=== PATIENT | female | born 1940 | race Hispanic/Latino ===

== ENCOUNTER 2018-04-07 15:25 | Emergency (ER) | payer MEDICARE ==
[~2018-04-07 15:25] MED LIST: ACET-66 PO; CARV12.511 PO; CRANBERRY PO; LISI40TA4 PO; LORA10TA7 PO; METF-527 PO; OMEP20TA25 PO; PRAV20TA4 PO; SODI30SP3 NS; SOTA120T PO; WARF-57 PO; XOPENEX IH
[2018-04-07 16:15] LABS: BASOPHILS % (AUTO) 0.4 % (0.0-5.0); EOSINOPHILS % (AUTO) 1.1 % (0.0-8.0); HEMATOCRIT 39.5 % (36-48); LYMPHOCYTES % (AUTO) 33.5 % (21.0-51.0); MEAN CORPUSCULAR VOLUME 91.1 fL (79-99); MONOCYTES % (AUTO) 11.7 % (3.0-13.0); NEUTROPHILS % (AUTO) 53.3 % (40.0-77.0); PLATELET COUNT (AUTO) 200 K/uL (130-400); RED BLOOD CELL COUNT(AUTO) 4.34 MIL/uL (4.00-5.50); RED CELL DISTRIBUTION WIDTH 13.7 % (11.0-15.5); WHITE BLOOD COUNT (AUTO) 6.5 K/uL (4.8-10.8)
[2018-04-07 16:27] LABS: CREATININE 0.9 mg/dL (0.5-1.5)
[2018-04-07 16:32] LABS: ALBUMIN 3.1 g/dL (3.5-5.0); BILIRUBIN,TOTAL 0.9 mg/dL (0.2-1.0); TOTAL PROTEIN, SERUM 6.5 g/dL (6.0-8.3)
[2018-04-07] MEDS ORDERED: SODIUM CHLORIDE 0.9% 1000ML 1,000 ML IV ONE (17:08)
[2018-04-07 18:33] LABS: APPEARANCE,URINE Clear (CLEAR); BILIRUBIN,URINE Negative (NEGATIVE); COLOR,URINE Yellow (YELLOW); GLUCOSE, URINE (UA) Negative (NEGATIVE); KETONES,URINE Negative (NEGATIVE); LEUKOCYTE ESTERASE ,URINE Negative (NEGATIVE); NITRATE,URINE Negative (NEGATIVE); OCCULT BLOOD,URINE Negative (NEGATIVE); PROTEIN,URINE Negative (NEGATIVE); UROBILINOGEN,URINE 0.2 mg/dL (0.2-1.0)
== END 2018-04-07 19:19 | disposition home or self-care (01) ==
LOC: EDH 15:25
DX: R19.7 Diarrhea, unspecified (principal); I48.91 Unspecified atrial fibrillation; I25.10 Atherosclerotic heart disease of native coronary artery without angina pectoris; J44.9 Chronic obstructive pulmonary disease, unspecified; E11.9 Type 2 diabetes mellitus without complications; E78.5 Hyperlipidemia, unspecified; I10 Essential (primary) hypertension; Z88.6 Allergy status to analgesic agent; Z88.8 Allergy status to other drugs, medicaments and biological substances
CPT/HCPCS: 36415; 71045; 80053; 81003; 85025; 93005; 96360; 96361; 99285; J7030

== ENCOUNTER 2018-05-25 02:53 | Observation (INO) | payer MEDICARE ==
[2018-05-25] MEDS ORDERED: MECLIZINE HCL 25 MG TABLET ONE (03:12)
[2018-05-25] MEDS ORDERED: ONDANSETRON HCL 4 MG/2 ML VIAL ONE (03:12)
[2018-05-25 03:42] LABS: CREATININE 0.9 mg/dL (0.5-1.5)
[2018-05-25 03:43] LABS: BASOPHILS % (AUTO) 0.6 % (0.0-5.0); EOSINOPHILS % (AUTO) 1.3 % (0.0-8.0); LYMPHOCYTES % (AUTO) 31.5 % (21.0-51.0); MEAN CORPUSCULAR HEMOGLOBIN 29.7 pg (27.0-33.0); MEAN CORPUSCULAR HGB CONC 33.2 g/dL (32.0-36.0); MEAN CORPUSCULAR VOLUME 89.6 fL (79-99); MONOCYTES % (AUTO) 9.8 % (3.0-13.0); NEUTROPHILS % (AUTO) 56.8 % (40.0-77.0); PLATELET COUNT (AUTO) 161 K/uL (130-400); RED BLOOD CELL COUNT(AUTO) 4.35 MIL/uL (4.00-5.50)
[2018-05-25 03:44] LABS: INR 1.4 (0.85-1.15); PARTIAL THROMBOPLASTIN TIME 32.3 SEC (26.3-35.5); PROTHROMBIN TIME 14.6 SEC (9.6-11.6)
[2018-05-25 03:46] LABS: BILIRUBIN,TOTAL 1.5 mg/dL (0.2-1.0); TOTAL PROTEIN, SERUM 6.3 g/dL (6.0-8.3)
[2018-05-25 04:36] LABS: APPEARANCE,URINE Clear (CLEAR); BILIRUBIN,URINE Negative (NEGATIVE); COLOR,URINE Yellow (YELLOW); GLUCOSE, URINE (UA) Negative (NEGATIVE); KETONES,URINE Negative (NEGATIVE); LEUKOCYTE ESTERASE ,URINE Small (NEGATIVE); NITRATE,URINE Negative (NEGATIVE); OCCULT BLOOD,URINE Negative (NEGATIVE); PROTEIN,URINE Negative (NEGATIVE); UROBILINOGEN,URINE 0.2 mg/dL (0.2-1.0)
[2018-05-25 04:58] LABS: BACTERIA,URINE Rare /HPF (None Seen); RBC,URINE None Seen /HPF (0-1)
[2018-05-25] MEDS ORDERED: MECLIZINE HCL 12.5 MG TABLET PO PRN (05:45)
[2018-05-25] MEDS ORDERED: SODIUM CHLORIDE 0.9% 1000ML 1,000 ML IV SCH (05:45)
[2018-05-25 08:00] VITALS: BP 151/67
[2018-05-25] MEDS ORDERED: ACETAMINOPHEN 325 MG TAB PO PRN (08:15)
[2018-05-25] MEDS ORDERED: WARF-57 PO (08:41)
[2018-05-25] MEDS ORDERED: OMEP20CA10 PO (08:41)
[2018-05-25] MEDS ORDERED: METF-444 PO (08:41)
[2018-05-25] MEDS ORDERED: LISI40TA4 PO (08:41)
[2018-05-25] MEDS ORDERED: CARV6.25 PO (08:41)
[2018-05-25] MEDS ORDERED: ENOXAPARIN SODIUM 80 MG/0.8 ML SQ SCH (09:00)
[2018-05-25 12:00] VITALS: BP 151/72
[2018-05-25 16:00] VITALS: BP 152/76
== END 2018-05-25 18:55 | disposition home or self-care (01) ==
LOC: EDH 02:53 → EDHIP 05:01 → 3BH 06:45
PROVIDERS: ADMIT Internal Medicine; ATTEND Internal Medicine
DX: H81.399 Other peripheral vertigo, unspecified ear (principal); I48.91 Unspecified atrial fibrillation; I48.92 Unspecified atrial flutter; R51 Headache; R19.7 Diarrhea, unspecified; E11.9 Type 2 diabetes mellitus without complications; I10 Essential (primary) hypertension; E66.9 Obesity, unspecified; Z79.01 Long term (current) use of anticoagulants
CPT/HCPCS: 36415; 70450; 70551; 80053; 81001; 82150; 82550; 82948 ×2; 83690; 84484; 85025; 85610; 85730; 87088; 93005; 96360; 96361; 96372; 99284; G0378 ×14; J1650; J2405; J7030

== ENCOUNTER 2018-07-06 17:38 | Observation (INO) | payer MEDICARE ==
[~2018-07-06] VITALS: Ht 152.4 cm; Wt 72.6 kg
[~2018-07-06 17:38] MED LIST changes: -CARV12.511 PO; +CARV6.25 PO; +METF-444 PO; -METF-527 PO; +OMEP20CA10 PO; -OMEP20TA25 PO; -PRAV20TA4 PO
[2018-07-06] MEDS ORDERED: GLUCAGON 1MG KIT 1 MG ML IM PRN (19:15)
[2018-07-06] MEDS ORDERED: DEXTROSE 50%-WATER 50 ML DISP.SYRIN IV PRN (19:15)
[2018-07-06 20:06] LABS: BASOPHILS % (AUTO) 0.6 % (0.0-5.0); EOSINOPHILS % (AUTO) 1.1 % (0.0-8.0); LYMPHOCYTES % (AUTO) 33.3 % (21.0-51.0); MEAN CORPUSCULAR HEMOGLOBIN 29.9 pg (27.0-33.0); MEAN CORPUSCULAR HGB CONC 33.9 g/dL (32.0-36.0); MEAN CORPUSCULAR VOLUME 88.2 fL (79-99); MONOCYTES % (AUTO) 8.8 % (3.0-13.0); NEUTROPHILS % (AUTO) 56.2 % (40.0-77.0); PLATELET COUNT (AUTO) 167 K/uL (130-400); RED BLOOD CELL COUNT(AUTO) 4.43 MIL/uL (4.00-5.50); RED CELL DISTRIBUTION WIDTH 14.4 % (11.0-15.5); WHITE BLOOD COUNT (AUTO) 5.7 K/uL (4.8-10.8)
[2018-07-06 20:18] LABS: CREATININE 0.9 mg/dL (0.5-1.5); POTASSIUM 4.4 mmol/L (3.5-5.1)
[2018-07-06 20:23] LABS: BILIRUBIN,DIRECT 0.1 mg/dL (0.0-0.3); BILIRUBIN,TOTAL 0.8 mg/dL (0.2-1.0); TOTAL PROTEIN, SERUM 6.4 g/dL (6.0-8.3)
[2018-07-06 20:28] LABS: CREATINE KINASE, TOTAL 70 U/L (21-232); MYOGLOBIN 25 ng/mL (10-92); TROPONIN I < 0.04 ng/mL (0.00-0.06)
[2018-07-06] MEDS: INSULIN R PO SS1 SQ SCH (21:00)
[2018-07-06 23:51] VITALS: BP 141/90
[2018-07-07] MEDS ORDERED: METF-446 PO (00:27)
[2018-07-07] MEDS ORDERED: LISI40TA4 PO (00:27)
[2018-07-07 02:20] LABS: HEMATOCRIT 38.3 % (36-48); MEAN CORPUSCULAR HEMOGLOBIN 28.9 pg (27.0-33.0); MEAN CORPUSCULAR HGB CONC 32.8 g/dL (32.0-36.0); MEAN CORPUSCULAR VOLUME 88.1 fL (79-99); PLATELET COUNT (AUTO) 158 K/uL (130-400); RED BLOOD CELL COUNT(AUTO) 4.35 MIL/uL (4.00-5.50); RED CELL DISTRIBUTION WIDTH 14.6 % (11.0-15.5); WHITE BLOOD COUNT (AUTO) 5.4 K/uL (4.8-10.8)
[2018-07-07 02:36] LABS: ALANINE AMINOTRANSFERASE 28 U/L (12-78); ASPARTATE AMINOTRANSFERASE 17 U/L (10-37); BILIRUBIN,DIRECT 0.2 mg/dL (0.0-0.3); CARBON DIOXIDE 32 mmol/L (21-32); CHLORIDE 104 mmol/L (101-111); CREATINE KINASE, TOTAL 53 U/L (21-232); CREATININE 0.9 mg/dL (0.5-1.5); GLOMERULAR FILTR. RATE CALC 64 mL/min (>60); GLUCOSE,RANDOM 114 mg/dL (70-105); MYOGLOBIN 37 ng/mL (10-92); POTASSIUM 3.9 mmol/L (3.5-5.1); SODIUM SERUM 141 mmol/L (136-145); TROPONIN I < 0.04 ng/mL (0.00-0.06); UREA NITROGEN, BLOOD 15 mg/dL (7-18)
[2018-07-07 03:00] VITALS: BP 152/71
[2018-07-07 03:03] LABS: BAND NEUTROPHILS % (MANUAL) 3 % (0-2); LYMPHOCYTES % (MANUAL) 38 % (22-44); MONOCYTES % (MANUAL) 4 % (2-9); REACTIVE LYMPHOCYTES 4 % (0-0); SEGMENTED NEUTROPHILS % 51 % (40-70)
[2018-07-07 03:04] LABS: MAN.DIFF COMMENT-IMPRESSION MANUAL DIFFERENTIAL
[2018-07-07] MEDS: INSULIN R PO SS1 SQ SCH ×4 (06:32→20:25)
[2018-07-07 07:00] VITALS: BP 161/94
[2018-07-07 08:16] LABS: CREATINE KINASE, TOTAL 54 U/L (21-232); MYOGLOBIN 36 ng/mL (10-92); TROPONIN I < 0.04 ng/mL (0.00-0.06)
[2018-07-07] MEDS ORDERED: ATOR40TA71 PO (08:25)
[2018-07-07] MEDS ORDERED: ARFO15VI3 IH (08:25)
[2018-07-07] MEDS ORDERED: IPRA0.2S54 IH (08:25)
[2018-07-07] MEDS ORDERED: CHOL200059 PO (08:25)
[2018-07-07] MEDS ORDERED: AMLO5TAB9 PO (08:25)
[2018-07-07] MEDS ORDERED: LORATADINE 10 MG TABLET PO PRN (08:30)
[2018-07-07] MEDS ORDERED: SODIUM CHLORIDE 45 ML SPRY NS SCH (09:15)
[2018-07-07 09:24] LABS: INR 1.66 (0.85-1.15); PARTIAL THROMBOPLASTIN TIME 35.7 SEC (26.3-35.5); PROTHROMBIN TIME 17.3 SEC (9.6-11.6)
--- NOTE | 2018-07-07 09:36 | NUR ---
SPOKE WITH DR. MILLER AND INFORMED MD OF THE NEW CONSULT. MD SAID TO KEEP PATIENT NPO AT THIS TIME.
[2018-07-07 11:00] VITALS: BP 125/73
[2018-07-07] MEDS: SOTALOL HCL 80 MG TABLET PO SCH ×2 (11:35→20:02)
[2018-07-07] MEDS: PANTOPRAZOLE SODIUM 40 MG TABLET.DR PO SCH (11:35)
[2018-07-07] MEDS: AMLODIPINE BESYLATE 5 MG TAB PO SCH (11:35)
[2018-07-07] MEDS: CARVEDILOL 6.25 MG TABLET PO SCH ×2 (11:36→20:03)
[2018-07-07] MEDS: LISINOPRIL 40 MG TABLET PO SCH ×2 (11:36→20:10)
[2018-07-07 16:00] VITALS: BP 152/78
[2018-07-07] MEDS: WARFARIN SODIUM 5 MG TAB PO SCH (16:30)
[2018-07-07] MEDS: CLOPIDOGREL BISULFATE 75 MG TAB PO SCH (16:31)
[2018-07-07] MEDS: ACETAMINOPHEN EXTRA STRENGTH 500 MG TABLET PO PRN (16:31)
[2018-07-07] MEDS: IPRATROPIUM 0.5 MG/2.5 ML INH IH PRN ×2 (16:43→22:13)
[2018-07-07 19:00] VITALS: BP 134/66
[2018-07-07] MEDS ORDERED: ATORVASTATIN CALCIUM 40 MG TABLET PO SCH (21:00)
[2018-07-07 23:00] VITALS: BP 124/63
[2018-07-08 03:00] VITALS: BP 122/67
[2018-07-08 03:58] LABS: HEMATOCRIT 38.4 % (36-48); MEAN CORPUSCULAR HEMOGLOBIN 29.8 pg (27.0-33.0); MEAN CORPUSCULAR VOLUME 87.7 fL (79-99); NUCLEATED RED BLOOD CELLS 0.1 % (0.0-0.19); PLATELET COUNT (AUTO) 171 K/uL (130-400); RED BLOOD CELL COUNT(AUTO) 4.38 MIL/uL (4.00-5.50); RED CELL DISTRIBUTION WIDTH 14.5 % (11.0-15.5); WHITE BLOOD COUNT (AUTO) 4.4 K/uL (4.8-10.8)
[2018-07-08 04:12] LABS: ALBUMIN 2.9 g/dL (3.5-5.0); BILIRUBIN,TOTAL 1.4 mg/dL (0.2-1.0); CREATININE 0.8 mg/dL (0.5-1.5); TOTAL PROTEIN, SERUM 6.1 g/dL (6.0-8.3)
[2018-07-08 04:15] LABS: INR 1.38 (0.85-1.15); PARTIAL THROMBOPLASTIN TIME 33.4 SEC (26.3-35.5); PROTHROMBIN TIME 14.4 SEC (9.6-11.6)
[2018-07-08 04:23] LABS: BASOPHILS % (MANUAL) 1 % (0-2); LYMPHOCYTES % (MANUAL) 43 % (22-44); MAN.DIFF COMMENT-IMPRESSION MANUAL DIFFERENTIAL; MONOCYTES % (MANUAL) 5 % (2-9); SEGMENTED NEUTROPHILS % 51 % (40-70)
[2018-07-08] MEDS: INSULIN R PO SS1 SQ SCH ×3 (05:12→16:30)
[2018-07-08] MEDS: IPRATROPIUM 0.5 MG/2.5 ML INH IH PRN (06:16)
[2018-07-08 07:00] VITALS: BP 130/76
[2018-07-08] MEDS ORDERED: REGADENOSON 0.4 MG/5 ML PF SYG IVP SCH (07:15)
[2018-07-08] MEDS ORDERED: METFORMIN HCL 500 MG TABLET PO SCH (08:00)
[2018-07-08] MEDS: AMLODIPINE BESYLATE 5 MG TAB PO SCH (09:00)
[2018-07-08] MEDS ORDERED: CRANBERRY 4200 MG PO PRN (09:00)
[2018-07-08] MEDS ORDERED: BROVANA IH PRN (09:00)
[2018-07-08] MEDS ORDERED: **HM** VIT D3 400 UNITS PO SCH (09:00)
[2018-07-08 11:56] VITALS: BP 154/86
[2018-07-08] MEDS: LISINOPRIL 40 MG TABLET PO SCH (12:10)
[2018-07-08] MEDS: PANTOPRAZOLE SODIUM 40 MG TABLET.DR PO SCH (12:10)
[2018-07-08] MEDS: CLOPIDOGREL BISULFATE 75 MG TAB PO SCH (12:10)
[2018-07-08] MEDS: SOTALOL HCL 80 MG TABLET PO SCH (12:11)
[2018-07-08] MEDS: CARVEDILOL 6.25 MG TABLET PO SCH (12:11)
[2018-07-08] MEDS: ACETAMINOPHEN EXTRA STRENGTH 500 MG TABLET PO PRN (12:17)
[2018-07-08 16:00] VITALS: BP 130/74
--- NOTE | 2018-07-08 16:00 | NUR ---
Spoke with Dr. Awan and per MD, patient's lexiscan was normal. Plavix may be discontinued and may keep patient on Warfarin. Patient may f/u with Dr. Jacob as previously scheduled. I informed Dr. Blackwell about this and he said ok to discharge patient.
[2018-07-08] MEDS ORDERED: ENOXAPARIN SODIUM 80 MG/0.8 ML SQ SCH ×2 (16:45→21:00)
[2018-07-08] MEDS: WARFARIN SODIUM 5 MG TAB PO SCH (16:48)
[2018-07-08] MEDS ORDERED: WARFARIN SODIUM 10 MG TABLET PO SCH (17:00)
--- NOTE | 2018-07-08 18:00 | NUR ---
Discharge instructions/information given to patient. No new prescriptions. Teachback method used to educate patient on diet, f/u appointments, and need for INR check. Patient will have INR checked at Dr. Blackwell's office on Monday07/11/18. PIV removed. Tip intact. TEle removed and returned. All belongings were packed.
[2018-07-08] MEDS ORDERED: ENOXAPARIN SODIUM 1 MG/KG SQ SCH (21:00)
== END 2018-07-08 18:20 | disposition home or self-care (01) ==
LOC: EDH 17:38 → EDHIP 18:55 → 2DH 22:39
PROVIDERS: ADMIT Internal Medicine; ATTEND Internal Medicine
DX: I24.9 Acute ischemic heart disease, unspecified (principal); I44.7 Left bundle-branch block, unspecified; E11.9 Type 2 diabetes mellitus without complications; E78.5 Hyperlipidemia, unspecified; G47.00 Insomnia, unspecified; I10 Essential (primary) hypertension; I48.0 Paroxysmal atrial fibrillation; J44.9 Chronic obstructive pulmonary disease, unspecified; K21.9 Gastro-esophageal reflux disease without esophagitis; Z79.01 Long term (current) use of anticoagulants
CPT/HCPCS: 36415 ×3; 71045; 78452; 80048 ×2; 80053; 80076 ×2; 82550 ×3; 82948 ×7; 83874 ×3; 84484 ×3; 85025 ×3; 85610 ×2; 85730 ×2; 93005; 93017; 93306; 94640 ×3; 94664; 96372; A9500 ×2; G0378 ×47; J1650; J2785; 96374

== ENCOUNTER 2022-05-14 10:15 | Emergency (ER) | payer MEDICARE ==
[~2022-05-14] VITALS: Ht 152.4 cm; Wt 77.1 kg
[~2022-05-14 10:15] MED LIST changes: +ARFO15VI3 IH; +CHOL200059 PO; +IPRA0.2S54 IH; -LISI40TA4 PO; +LISI40TA9 PO; -METF-444 PO; +METF-446 PO; -OMEP20CA10 PO; +OMEP20CA12 PO; -XOPENEX IH
[2022-05-14] MEDS ORDERED: IPRATROPIUM/ALBUTEROL SULFATE 3 ML SOLUTION IH SCH (11:30)
[2022-05-14 12:02] LABS: BASOPHILS % (AUTO) 0.6 % (0.0-5.0); HEMATOCRIT 41.2 % (36-48); LYMPHOCYTES % (AUTO) 12.8 % (21.0-51.0); MEAN CORPUSCULAR HEMOGLOBIN 29.8 pg (27.0-33.0); MEAN CORPUSCULAR HGB CONC 32.5 g/dL (32.0-36.0); MEAN CORPUSCULAR VOLUME 91.6 fL (79-99); MONOCYTES % (AUTO) 10.1 % (3.0-13.0); NEUTROPHILS % (AUTO) 75.4 % (40.0-77.0); PLATELET COUNT (AUTO) 192 K/uL (130-400); RED CELL DISTRIBUTION WIDTH 14.3 % (11.0-15.5); WHITE BLOOD COUNT (AUTO) 6.3 K/uL (4.8-10.8)
[2022-05-14 12:11] LABS: CREATININE 1.3 mg/dL (0.5-1.5); POTASSIUM 5.2 mmol/L (3.5-5.1)
[2022-05-14 12:15] LABS: ALBUMIN 3.5 g/dL (3.5-5.0); TOTAL PROTEIN, SERUM 7.2 g/dL (6.0-8.3)
[2022-05-14] MEDS ORDERED: IPRATROPIUM 0.5 MG/2.5 ML INH IH ONE (12:16)
[2022-05-14] MEDS ORDERED: IPRATROPIUM 0.5 MG/2.5 ML INH IH SCH (12:30)
[2022-05-14 12:45] LABS: APPEARANCE,URINE CLEAR (CLEAR); BILIRUBIN,URINE NEGATIVE (NEGATIVE); COLOR,URINE LIGHT-YELLOW (YELLOW); GLUCOSE, URINE (UA) NEGATIVE (NEGATIVE); KETONES,URINE NEGATIVE (NEGATIVE); LEUKOCYTE ESTERASE ,URINE NEGATIVE Leu/uL (NEGATIVE); NITRATE,URINE NEGATIVE (NEGATIVE); OCCULT BLOOD,URINE SMALL (NEGATIVE); PROTEIN,URINE NEGATIVE (NEGATIVE); UROBILINOGEN,URINE 0.2 mg/dL (0.2-1.0)
[2022-05-14 12:57] LABS: BACTERIA,URINE RARE /HPF (None Seen); SQUAMOUS EPITHELIAL CELL,UR RARE /HPF (0-2); WBC,URINE 0-1 /HPF (0-1)
[2022-05-14] MEDS ORDERED: PRED20TA3 PO (13:25)
[2022-05-14] MEDS ORDERED: CEFU500T67 PO (13:25)
[2022-05-14 14:36] VITALS: BP 145/68
== END 2022-05-14 14:35 | disposition home or self-care (01) ==
LOC: EDH 10:15
DX: J44.1 Chronic obstructive pulmonary disease with (acute) exacerbation (principal); Z20.822 Contact with and (suspected) exposure to COVID-19; E11.9 Type 2 diabetes mellitus without complications; E78.00 Pure hypercholesterolemia, unspecified; I10 Essential (primary) hypertension; Z79.01 Long term (current) use of anticoagulants; Z88.5 Allergy status to narcotic agent; Z88.6 Allergy status to analgesic agent; Z88.8 Allergy status to other drugs, medicaments and biological substances; Z90.49 Acquired absence of other specified parts of digestive tract; Z95.810 Presence of automatic (implantable) cardiac defibrillator
CPT/HCPCS: 99285; 71045; 87635; 82550; 84484; 80053; 85025; 87040 ×2; 87077; 87186; 87205; 87804 ×2; 83605; 81001; 36415; 94640; 87071; C9803

== ENCOUNTER 2022-07-28 14:51 | Emergency (ER) | payer MEDICARE ==
[~2022-07-28] VITALS: Ht 152.4 cm; Wt 77.1 kg
[~2022-07-28 14:51] MED LIST changes: -ACET-66 PO; -ARFO15VI3 IH; -CARV6.25 PO; -CHOL200059 PO; -CRANBERRY PO; -IPRA0.2S54 IH; -LISI40TA9 PO; -LORA10TA7 PO; +LOSA100T58 PO; +METO-409 PO; +PRAV20TA4 PO; +RIVA20TA PO; -SODI30SP3 NS; -SOTA120T PO; +SPIR50TA5 PO; -WARF-57 PO
[2022-07-28 15:33] LABS: BASOPHILS % (AUTO) 0.4 % (0.0-5.0); EOSINOPHILS % (AUTO) 0.2 % (0.0-8.0); HEMATOCRIT 43.9 % (36-48); LYMPHOCYTES % (AUTO) 16.1 % (21.0-51.0); MEAN CORPUSCULAR HEMOGLOBIN 30.4 pg (27.0-33.0); MEAN CORPUSCULAR HGB CONC 33.3 g/dL (32.0-36.0); MEAN CORPUSCULAR VOLUME 91.5 fL (79-99); MONOCYTES % (AUTO) 7.3 % (3.0-13.0); NEUTROPHILS % (AUTO) 73.7 % (40.0-77.0); PLATELET COUNT (AUTO) 183 K/uL (130-400); WHITE BLOOD COUNT (AUTO) 9.8 K/uL (4.8-10.8)
[2022-07-28 15:58] LABS: B-TYPE NATRIURETIC PEPTIDE 241 pg/mL (0-100)
[2022-07-28 16:24] LABS: CREATININE 1.7 mg/dL (0.5-1.5); POTASSIUM 4.4 mmol/L (3.5-5.1)
[2022-07-28 16:28] LABS: TOTAL PROTEIN, SERUM 6.5 g/dL (6.0-8.3)
[2022-07-28] MEDS ORDERED: IPRATROPIUM 0.5 MG/2.5 ML INH IH ONE (17:00)
[2022-07-28] MEDS ORDERED: SOLU-MEDROL 125MG VIAL IVP ONE (17:00)
[2022-07-28] MEDS ORDERED: LORAZEPAM 2 MG/ML 1 ML VIAL ONE (17:06)
[2022-07-28] MEDS ORDERED: LORAZEPAM 2 MG/ML 1 ML VIAL IVP ONE ×2 (17:30)
[2022-07-28 18:02] VITALS: BP 132/73
[2022-07-28] MEDS ORDERED: LORA0.5T83 PO (18:08)
== END 2022-07-28 18:30 | disposition home or self-care (01) ==
LOC: EDH 14:51
DX: F41.9 Anxiety disorder, unspecified (principal); R06.02 Shortness of breath; I48.91 Unspecified atrial fibrillation; J44.9 Chronic obstructive pulmonary disease, unspecified; I48.92 Unspecified atrial flutter; Z20.822 Contact with and (suspected) exposure to COVID-19; Z88.5 Allergy status to narcotic agent; Z88.6 Allergy status to analgesic agent; Z88.8 Allergy status to other drugs, medicaments and biological substances; Z79.899 Other long term (current) drug therapy; Z79.84 Long term (current) use of oral hypoglycemic drugs; Z96.651 Presence of right artificial knee joint
CPT/HCPCS: 99285; 96374; 71045; 87635; 96375; 83735; 84484; 80053; 83880; 85025; 36415; 93005; 94640; C9803; J2930; J2060

== ENCOUNTER 2022-08-07 16:50 | Emergency (ER) | payer MEDICARE ==
[~2022-08-07] VITALS: Ht 152.4 cm; Wt 77.1 kg
[~2022-08-07 16:50] MED LIST changes: +LORA0.5T83 PO
[2022-08-07 17:23] LABS: BASOPHILS % (AUTO) 0.3 % (0.0-5.0); EOSINOPHILS % (AUTO) 0.4 % (0.0-8.0); HEMATOCRIT 47.7 % (36-48); LYMPHOCYTES % (AUTO) 23.5 % (21.0-51.0); MEAN CORPUSCULAR HEMOGLOBIN 30.4 pg (27.0-33.0); MEAN CORPUSCULAR HGB CONC 33.5 g/dL (32.0-36.0); MEAN CORPUSCULAR VOLUME 90.5 fL (79-99); MONOCYTES % (AUTO) 9.6 % (3.0-13.0); NEUTROPHILS % (AUTO) 65.1 % (40.0-77.0); PLATELET COUNT (AUTO) 203 K/uL (130-400); RED BLOOD CELL COUNT(AUTO) 5.27 MIL/uL (4.00-5.50); RED CELL DISTRIBUTION WIDTH 15.5 % (11.0-15.5); WHITE BLOOD COUNT (AUTO) 7.3 K/uL (4.8-10.8)
[2022-08-07 17:32] LABS: CREATININE 1.4 mg/dL (0.5-1.5); POTASSIUM 4.9 mmol/L (3.5-5.1)
[2022-08-07 17:37] LABS: ALBUMIN 3.2 g/dL (3.5-5.0); TOTAL PROTEIN, SERUM 6.9 g/dL (6.0-8.3)
[2022-08-07] MEDS ORDERED: HYDROMORPHONE 0.5 MG SYG (0.5MG/0.5ML) IVP ONE (20:00)
[2022-08-07] MEDS ORDERED: ONDANSETRON 4MG INJ ONE (21:35)
[2022-08-07] MEDS ORDERED: LIDOP TD (21:44)
[2022-08-07] MEDS ORDERED: GABA300C PO (21:44)
[2022-08-07] MEDS ORDERED: CYCL-309 PO (21:44)
[2022-08-07 21:56] VITALS: BP 151/86
[2022-08-07] MEDS ORDERED: ONDANSETRON 4MG INJ IVP ONE (22:00)
== END 2022-08-07 22:20 | disposition home or self-care (01) ==
LOC: EDH 16:50
DX: M54.2 Cervicalgia (principal); I50.9 Heart failure, unspecified; J44.9 Chronic obstructive pulmonary disease, unspecified; Z79.899 Other long term (current) drug therapy; Z88.5 Allergy status to narcotic agent; Z88.6 Allergy status to analgesic agent; Z88.8 Allergy status to other drugs, medicaments and biological substances; Z95.810 Presence of automatic (implantable) cardiac defibrillator
CPT/HCPCS: 99285; 96374; 72125; 71045; 96375; 84484; 80053; 85025; 36415; 93005; J2405; J1170